=== PATIENT | male | born 2005 | race Caucasian/White ===

== ENCOUNTER 2024-05-26 02:01 | Emergency (ER) | payer BC, SELFPAY ==
[2024-05-26] MEDS ORDERED: Lidocaine 1% PF 5 ML VIAL ONE (04:58)
== END 2024-05-26 08:08 | disposition home or self-care (01) ==
LOC: ERS 02:01
DX: S02.2XXB Fracture of nasal bones, initial encounter for open fracture (principal); Y04.2XXA Assault by strike against or bumped into by another person, initial encounter
CPT/HCPCS: 70486